=== PATIENT | female | born 1935 | race Caucasian/White ===

== ENCOUNTER 2016-08-05 15:10 | Emergency (ER) | payer SELFPAY ==
[2016-08-05 16:50] LABS: BASOPHIL % 0.3 % (0-2); PLATELET COUNT 272 x10^3mcL (130-400); RED CELL DISTRIBUTION WIDTH 13.6 % (11.5-14.5)
[2016-08-05 17:00] LABS: CALCIUM 9.5 mg/dL (8.5-10.1); CHLORIDE SERUM 98 mmol/L (98-107); CREATININE SERUM 0.7 mg/dL (0.6-1.0); GLUCOSE SERUM 147 mg/dL (74-106); POTASSIUM SERUM 3.3 mmol/L (3.5-5.1); SODIUM SERUM 137 mmol/L (136-145)
[2016-08-05 17:08] LABS: microscopic required? YES; urine erythrocyte TRACE (NEGATIVE)
[2016-08-05 17:12] LABS: ALBUMIN 4.8 g/dL (3.4-5.0); ALKALINE PHOSPHATASE 89 U/L (46-116); ALT/SGPT 27 U/L (14-59); AST/SGOT 21 U/L (15-37); BILIRUBIN TOTAL 0.94 mg/dL (0.20-1.00)
[2016-08-05 17:14] LABS: TOTAL PROTEIN, SERUM 8.9 g/dL (6.4-8.2)
[2016-08-05 17:33] LABS: CK-MB 1.2 ng/mL (0-3.6)
[2016-08-05 18:28] VITALS: BP 197/101
== END 2016-08-05 18:35 | disposition short-term general hospital (02) ==
LOC: ED 15:10
PROVIDERS: Emergency Medicine
DX: I63.9 Cerebral infarction, unspecified (principal); I10 Essential (primary) hypertension; E11.9 Type 2 diabetes mellitus without complications; Z79.82 Long term (current) use of aspirin; Z79.84 Long term (current) use of oral hypoglycemic drugs; Z79.899 Other long term (current) drug therapy
CPT/HCPCS: 83880